=== PATIENT | male | born 1945 | race Caucasian/White ===

== ENCOUNTER 2017-07-08 23:17 | Observation (INO) | payer OTHER ==
[2017-07-08] MEDS ORDERED: ONDANSETRON 4 MG/2 ML VIAL ONE (23:29)
[2017-07-08 23:44] VITALS: BMI 37.6
[2017-07-09 00:38] LABS: BASO # 0.1 # (0.1-1); BASO % 0.5 % (0-2.0); EOS # 0.2 # (0-4.5); EOS % 1.4 % (0-4.5); MCH 31.8 pg (25.7-33.7); MCHC 33.4 g/dl (32.0-35.9); MEAN CELL VOLUME 95.3 fl (80-96); MEAN PLT VOLUME 8.3 fl (7.5-11.1); MONO # 1.1 # (3.8-10.2); NEUT # 8.2 # (42.8-82.8); NEUT % 65.5 % (42.8-82.8); PLATELET COUNT 252 K/MM3 (134-434); RDW 13.6 % (11.9-15.9); WHITE BLOOD COUNT 12.5 K/mm3 (4.0-10.0)
--- NOTE | 2017-07-09 00:48 | PDOC ---
History of Present Illness <Mele Max - Last Filed: 07/09/17 04:19> - History of Present Illness Initial Comments: 07/09/17 02:17 The patient is a 72 year old male, with a significant past medical history of HTN, hyperlipidemia, CAD s/p stent () on aspirin, who presents to the emergency department with, "impaired equilibrium" and multiple episodes of NBNB emesis. The patient reports waking up at 4am feeling nauseous, cold sweats, a posterior headache. When he stood up, he states his equilibrium felt off and he was unable to stand. He took two advil, the headache resolved and he felt better. He reports his symptoms arose again two hours ago and when he had episodes of emesis and significant cold sweats. While in the ED the patient had a repeat episode of large volume NBNB emesis. He reports when he sits he falls to the side. He reports that he cannot stand on his own. He reports never having similar symptoms previously. He reports when he had his SC in he did not have CP, more so felt very weak but did not have vomiting. He denies any recent fevers. He denies any recent diarrhea or constipation. He denies any recent abd pain, chest pain or shortness of breath. He denies any recent dysuria, frequency, urgency or hematuria. Allergies: NKA Past surgical history: 2 stents Social History: Nonsmoker. Denies EtOH use and recreational drug use. Primary Care Physician: Dr. Cruz <Lia Suárez - Last Filed: 07/10/17 04:27> - General Chief Complaint: Nausea/Vomiting Stated Complaint: NAUSEA VOMITING Time Seen by Provider: 07/08/17 23:28 NIH Stroke Scale - Last Known Well Date/Time & Onset Date Last Known Well: 07/08/17 Time Last Known Well: 04:00 - Initial Evaluation Level of consciousness: Alert Ask patient the month and their age: Answers both correctly Ask patient to open & close eyes; make fist and let go: Obeys both correctly Best gaze (horizontal eye movement): Normal Visual field testing: No visual field loss Facial paresis (Show teeth/raise eyebrows/close eyes tight): Normal symmetrical movement Motor Function: Left Arm: Normal Motor Function: Right Arm: Normal (extends arm 90 (or 45) degrees for 10 seconds without drift Motor Function: Left Leg: Normal (extends leg 30 degrees for 5 seconds without drift) Motor Function: Right Leg: Normal (extends leg 30 degrees for 5 seconds without drift) Limb Ataxia: Present in two limbs Sensory(Use pinprick test arms,legs,trunk,face/side to side): Normal Best language (Describe picture, name items, read sentences): No Aphasia Dysarthria (read several words): Normal articulation Extinction and Inattention: No abnormality - Total Score NIH Stroke Scale Score: 2 <Mele Max - Last Filed: 07/09/17 04:19> Past History <Ou,Mele - Last Filed: 07/09/17 04:19> - Past Medical History Cancer: Yes (prostate cancer,testicular cancer) Cardiac Disorders: Yes (mi) CVA: No CHF: No (2 stents SC 2001) Dementia: No Diabetes: No GI Disorders: No Disorders: No HTN: Yes Hypercholesterolemia: Yes Liver Disease: No Seizures: No Thyroid Disease: No - Surgical History Abdominal Surgery: Yes (UMBILICAL HERNIA REPAIR) Appendectomy: Yes Cardiac Surgery: Yes (2 CARDIAC STENTS 2001) Cholecystectomy: No Lung Surgery: No Neurologic Surgery: No Orthopedic Surgery: No - Suicide/Smoking/Psychosocial Hx Smoking History: Never smoked Have you smoked in the past 12 months: No If you are a former smoker, when did you quit?: 1996 Information on smoking cessation initiated: No Hx Alcohol Use: Yes Drug/Substance Use Hx: No Substance Use Type: Alcohol <Lia Suárez - Last Filed: 07/10/17 04:27> - Past Medical History Allergies/Adverse Reactions: Allergies Allergy/AdvReac Type Severity Reaction Status Date / Time No Known Drug Allergies Allergy Verified 07/08/17 23:46 Home Medications: Ambulatory Orders Enalapril Maleate [Vasotec -] 20 mg PO BID 02/19/15 Metoprolol Succinate [Toprol Xl -] 50 mg PO HS 02/19/15 Multivit-Mins/Iron/Folic/Lycop [Centrum Ultra Men's Tablet] 1 each PO DAILY 01/27 Simvastatin 40 mg PO HS 02/19/15 Aspirin [ASA -] 81 mg PO DAILY #0 01/31/16 Review of Systems - Review of Systems Comments:: 07/09/17 02:17 GENERAL/CONSTITUTIONAL: +Diaphoresis. No fever or chills. No weakness. HEAD, EYES, EARS, NOSE AND THROAT: No change in vision. No ear pain or discharge. No sore throat. GASTROINTESTINAL:+Nausea. +Vomiting. No diarrhea or constipation. GENITOURINARY: No dysuria, frequency, or change in urination. CARDIOVASCULAR: No chest pain or shortness of breath. RESPIRATORY: No cough, wheezing, or hemoptysis. MUSCULOSKELETAL: No joint or muscle swelling or pain. No neck or back pain. SKIN: No rash NEUROLOGIC: +Headache. +equilibrium off balance. No loss of consciousness, or change in strength/sensation. ENDOCRINE: No increased thirst. No abnormal weight change. HEMATOLOGIC/LYMPHATIC: No anemia, easy bleeding, or history of blood clots. ALLERGIC/IMMUNOLOGIC: No hives or skin allergy. <Yara Suáreza - Last Filed: 07/10/17 04:27> *Physical Exam - Vital Signs Last Vital Signs Temp Pulse Resp BP Pulse Ox 97.7 F 75 22 135/78 95 07/08/17 23:39 07/08/17 23:39 07/08/17 23:39 07/08/17 23:39 07/08/17 23:39 <Ou,Mele - Last Filed: 07/09/17 04:19> - Vital Signs Last Vital Signs Temp Pulse Resp BP Pulse Ox 97.7 F 75 22 135/78 95 07/08/17 23:39 07/08/17 23:39 07/08/17 23:39 07/08/17 23:39 07/08/17 23:39 - Physical Exam Comments: 07/09/17 02:18 GENERAL: Awake, alert, and fully oriented, in no acute distress HEAD: No signs of trauma EYES: PERRLA, EOMI, sclera anicteric, conjunctiva clear ENT: Auricles normal inspection, hearing grossly normal, nares patent, oropharynx clear without exudates. Moist mucosa NECK: Normal ROM, supple, no lymphadenopathy, JVD, or masses LUNGS: Breath sounds equal, clear to auscultation bilaterally. No wheezes, and no crackles HEART: Regular rate and rhythm, normal S1 and S2, no murmurs, rubs or gallops ABDOMEN: Soft, nontender, normoactive bowel sounds. No guarding, no rebound. No masses EXTREMITIES: Normal range of motion, no edema. No clubbing or cyanosis. No cords, erythema, or tenderness NEUROLOGICAL: Normal speech, cranial nerves intact, negative pronator drift, 5/ 5 strength in all 4 extremities, normal sensation to light touch in all 4 extremities, +truncal ataxia SKIN: Warm, Dry, normal turgor, no rashes or lesions noted. <Lia Suárez - Last Filed: 07/10/17 04:27> Heart Score/ECG Review #1 07/09/17 00:44 Twelve-lead EKG was performed and reviewed by me. Normal sinus rhythm, rate 83. Normal axis, no ST elevations <Lia Suárez - Last Filed: 07/10/17 04:27> ED Treatment Course - LABORATORY CBC & Chemistry Diagram: 07/09/17 00:21 07/09/17 00:21 - ADDITIONAL ORDERS Additional order review: Laboratory Results 07/09/17 07/09/17 07/09/17 00:21 00:21 00:21 PT with INR 11.20 INR 0.99 PTT (Actin FS) 25.9 L Sodium 141 Potassium 3.8 Chloride 105 Carbon Dioxide 25 Anion Gap 11 BUN 25 H Creatinine 1.0 Creat Clearance w eGFR > 60 Random Glucose 135 H Calcium 8.8 Magnesium 2.1 Total Bilirubin 0.3 AST 34 ALT 35 Alkaline Phosphatase 87 Troponin I < 0.02 B-Natriuretic Peptide 97.05 Total Protein 7.0 Albumin 3.5 Lipase 363 07/09/17 00:21 RBC 4.74 MCV 95.3 MCHC 33.4 RDW 13.6 MPV 8.3 Neutrophils % 65.5 Lymphocytes % 23.6 Monocytes % 9.0 Eosinophils % 1.4 Basophils % 0.5 - Medications Given in the ED: ED Medications Discontinued Medications Generic Name Dose Route Start Last Admin Trade Name Freq PRN Reason Stop Dose Admin Meclizine HCl 25 mg 07/09/17 03:20 07/09/17 03:29 Antivert - PO 07/09/17 03:21 25 mg ONCE ONE Administration <Mele Max - Last Filed: 07/09/17 04:19> - LABORATORY CBC & Chemistry Diagram: 07/09/17 00:21 07/09/17 00:21 - RADIOLOGY Radiology Studies Ordered: Category Date Time Status HEAD CT WITHOUT CONTRAST [CT] Stat CT Scan 07/09/17 00:42 Ordered CHEST X-RAY PORTABLE* [RAD] Stat Radiology 07/09/17 00:42 Ordered <Lia Suárez - Last Filed: 07/10/17 04:27> Medical Decision Making - Medical Decision Making 07/09/17 00:48 72-year-old male history of CAD, hypertension, hyperlipidemia presents with 1 day of intermittent ataxia associated with weakness and emesis. Vitals are unremarkable. Exam w truncal ataxia c/f cerebellar stroke. Differential includes but is not limited to vertigo versus CVA versus ACS. We'll obtain labs , CT head, chest x-ray and reassess. 07/09/17 03:28 labs with mild leukocytosis to 12.5. Otherwise labs wnl. CTH negative for acute pathology. On re-eval, when pt asked to sit up, he has truncal ataxia. Denies room spinning dizziness. Presentation is concerning for acute stroke, less likely peripheral vertigo as pt does not have room spinning. Due to risk factors as well, MRI has been ordered, will admit for neuro c/s in AM and stroke w/u. Dr. Messina's service was paged, Dr. Wong is covering. Awaiting call back. <Lia Suárez - Last Filed: 07/10/17 04:27> *DC/Admit/Observation/Transfer <Mele Max - Last Filed: 07/09/17 04:19> - Discharge Dispostion Admit: Yes - Attestations Physician Attestion: 07/09/17 03:34 I, Dr. Lia Suárez MD, attest that this document has been prepared under my direction and personally reviewed by me in its entirety. I further attest, that it accurately reflects all work, treatment, procedures and medical decision -making performed by me. <Lia Suárez - Last Filed: 07/10/17 04:27> Diagnosis at time of Disposition: Truncal ataxia - Discharge Dispostion Condition at time of disposition: Stable
[2017-07-09 00:51] LABS: INR 0.99 (0.82-1.09); PROTHROMBIN TIME (PATIENT) 11.2 SEC (9.98-11.88)
[2017-07-09 00:54] LABS: ACTIVATED PTT 25.9 SECONDS (26.9-34.4)
[2017-07-09 01:13] LABS: ALBUMIN 3.5 g/dl (3.4-5.0); ANION GAP 11 (8-16); BILIRUBIN,TOTAL 0.3 mg/dL (0.2-1.0); CALCIUM 8.8 mg/dL (8.5-10.1); CO2 25 mmol/L (21-32); GLUCOSE,RANDOM 135 mg/dL (74-106); MAGNESIUM 2.1 mg/dL (1.8-2.4); SGOT/AST 34 U/L (15-37); SGPT/ALT 35 U/L (12-78)
[2017-07-09 01:16] LABS: ALK PHOS 87 U/L (45-117); TROPONIN I < 0.02 ng/ml (0.00-0.05)
[2017-07-09] MEDS ORDERED: MECLIZINE HCL 25 MG TABLET (FP) PO ONE (03:20)
[2017-07-09] MEDS ORDERED: MECLIZINE HCL 25 MG TABLET (FP) ONE ×2 (03:34→10:25)
--- NOTE | 2017-07-09 04:17 | PDOC ---
*Physical Exam - Vital Signs Last Vital Signs Temp Pulse Resp BP Pulse Ox 97.7 F 75 22 135/78 95 07/08/17 23:39 07/08/17 23:39 07/08/17 23:39 07/08/17 23:39 07/08/17 23:39 ED Treatment Course - LABORATORY CBC & Chemistry Diagram: 07/09/17 00:21 07/09/17 00:21 - ADDITIONAL ORDERS Additional order review: Laboratory Results 07/09/17 07/09/17 07/09/17 00:21 00:21 00:21 PT with INR 11.20 INR 0.99 PTT (Actin FS) 25.9 L Sodium 141 Potassium 3.8 Chloride 105 Carbon Dioxide 25 Anion Gap 11 BUN 25 H Creatinine 1.0 Creat Clearance w eGFR > 60 Random Glucose 135 H Calcium 8.8 Magnesium 2.1 Total Bilirubin 0.3 AST 34 ALT 35 Alkaline Phosphatase 87 Troponin I < 0.02 B-Natriuretic Peptide 97.05 Total Protein 7.0 Albumin 3.5 Lipase 363 07/09/17 00:21 RBC 4.74 MCV 95.3 MCHC 33.4 RDW 13.6 MPV 8.3 Neutrophils % 65.5 Lymphocytes % 23.6 Monocytes % 9.0 Eosinophils % 1.4 Basophils % 0.5 - Medications Given in the ED: ED Medications Discontinued Medications Generic Name Dose Route Start Last Admin Trade Name Freq PRN Reason Stop Dose Admin Meclizine HCl 25 mg 07/09/17 03:20 07/09/17 03:29 Antivert - PO 07/09/17 03:21 25 mg ONCE ONE Administration Medical Decision Making - Medical Decision Making 07/09/17 04:17 Care assumed at 3AM. Pt admitted to Dr. Rivera under tele obs for stroke w/u. *DC/Admit/Observation/Transfer Diagnosis at time of Disposition: Truncal ataxia - Discharge Dispostion Condition at time of disposition: Stable Admit: Yes - Referrals Referrals: Krishna Crum MD [Primary Care Provider] - - Patient Instructions - Post Discharge Activity - Attestations Physician Attestion: 07/09/17 04:21 I, Dr. Mele Max MD, attest that this document has been prepared under my direction and personally reviewed by me in its entirety. I further attest, that it accurately reflects all work, treatment, procedures and medical decision -making performed by me.
[2017-07-09] MEDS ORDERED: MECLIZINE HCL 25 MG TABLET (FP) PO PRN (04:50)
[2017-07-09] MEDS ORDERED: ONDANSETRON 4 MG/2 ML VIAL IVPUSH PRN (04:52)
[2017-07-09] MEDS ORDERED: SODIUM CHLORIDE 1,000 ML IV SCH (05:00)
--- NOTE | 2017-07-09 08:19 | HP ---
Admitting History and Physical - Primary Care Physician PCP: Krishna Crum - Admission Chief Complaint: Dizziness, Unsteady Gait and Balance History of Present Illness: This is a 72 y/o man with a significant past medical history of HTN, HLD, CAD ( stent x2), CHF, Prostate Ca, Testicular Ca. Who presents to the Ed with dizziness, unsteady gait, and a posterior headache x 1 day. Patient reports the symptoms started at 4am the day before. He reports that the symptoms lasted a few minutes then resolved. This time he states" I couldn't stand up, or hold my balance." He reports having one episode of non-bilious emesis and becoming cold and sweating profusely. The patient reports that the dizziness worsens on movement. The patient's reports that her drinks alcohol daily- Blueberry Nicole, Beer and Vodka. The patient admits to drinking 1/3 a bottle of wine tonight at a social setting. The patient denies fever, cough, SOB, CP, palpitations, AP, diarrhea, constipaiton, dysuria. History Source: Patient, Family Member Limitations to Obtaining History: No Limitations - Past Medical History Cardiovascular: Yes: CAD, CHF, HTN, Hyperlipdemia Renal/: Yes: Cancer (prostate, testicular) - Past Surgical History Past Surgical History: Yes: Stent (x2) - Smoking History Smoking history: Never smoked Have you smoked in the past 12 months: No If you are a former smoker, when did you quit?: 1996 - Alcohol/Substance Use Hx Alcohol Use: Yes (daily- Nicole, Beer, Vodka) Number of Drinks Daily: 4 History of Substance Use: reports: None - Social History Usual Living Arrangement: Yes: With Spouse ADL: Independent History of Recent Travel: No Home Medications - Allergies Allergies/Adverse Reactions: Allergies Allergy/AdvReac Type Severity Reaction Status Date / Time No Known Drug Allergies Allergy Verified 07/08/17 23:46 - Home Medications Home Medications: Ambulatory Orders Enalapril Maleate [Vasotec -] 20 mg PO BID 02/19/15 Metoprolol Succinate [Toprol Xl -] 50 mg PO HS 02/19/15 Multivit-Mins/Iron/Folic/Lycop [Centrum Ultra Men's Tablet] 1 each PO DAILY 01/27 Simvastatin 40 mg PO HS 02/19/15 Aspirin [ASA -] 81 mg PO DAILY #0 01/31/16 Family Disease History - Family Disease History Family Disease History: Heart Disease: Mother, Brother, Other: Father (brain aneurysm- ) Review of Systems - Review of Systems Constitutional: reports: Diaphoresis Eyes: reports: No Symptoms HENT: reports: No Symptoms Neck: reports: No Symptoms Cardiovascular: reports: No Symptoms Respiratory: reports: No Symptoms Gastrointestinal: reports: Nausea, Vomiting Genitourinary: reports: No Symptoms Breasts: reports: No Symptoms Reported Musculoskeletal: reports: No Symptoms Integumentary: reports: No Symptoms Neurological: reports: Dizziness, Headache, Incoordination, Unsteady Gait Endocrine: reports: No Symptoms Hematology/Lymphatic: reports: No Symptoms Psychiatric: reports: No Symptoms Physical Examination Vital Signs: Vital Signs Temperature 97.7 F 07/08/17 23:39 Pulse Rate 75 07/08/17 23:39 Respiratory Rate 22 07/08/17 23:39 Blood Pressure 135/78 07/08/17 23:39 O2 Sat by Pulse Oximetry (%) 95 07/08/17 23:39 Constitutional: Yes: Well Nourished, No Distress, Obese Eyes: Yes: WNL, Conjunctiva Clear, EOM Intact, PERRL HENT: Yes: WNL, Atraumatic, Normocephalic Neck: Yes: WNL, Supple, Trachea Midline Cardiovascular: Yes: WNL, Regular Rate and Rhythm, S1 Respiratory: Yes: WNL, Regular, CTA Bilaterally Gastrointestinal: Yes: Normal Bowel Sounds, Soft, Abdomen, Obese ...Rectal Exam: Yes: Deferred Renal/: Yes: WNL Breast(s): Yes: WNL Musculoskeletal: Yes: WNL Extremities: Yes: WNL Edema: Yes Edema: LLE: 1+, RLE: 1+ Peripheral Pulses WNL: Yes Integumentary: Yes: WNL Neurological: Yes: Alert, Oriented, Ataxia, Unsteady Gait ...Motor Strength: WNL Psychiatric: Yes: WNL, Alert, Oriented Labs: CBC, BMP 07/09/17 00:21 07/09/17 00:21 Imaging - Results Chest X-ray: Image Reviewed Cat Scan: Image Reviewed EKG: Image Reviewed Problem List - Problems (1) HTN (hypertension) Code(s): I10 - ESSENTIAL (PRIMARY) HYPERTENSION (2) CAD (coronary artery disease) Code(s): I25.10 - ATHSCL HEART DISEASE OF [place] CORONARY ARTERY W/O ANG PCTRS (3) DVT prophylaxis Code(s): KFD6770 - (4) Truncal ataxia Code(s): R27.8 - OTHER LACK OF COORDINATION Assessment/Plan This is a 72 y/o man with a PMHx of CAD, HTN, CHF, HLD, Prostate Ca, Testicular Ca. Placed in Tele Observation Truncal Ataxia. Plan: 1. Neuro: Disequilibrium - r/o Truncal Ataxia vs CVA vs Tumor - Likely secondary to Chronic Alcohol Abuse - NIHSS 1 - Cardiac monitoring - Aopreciate Neurology Consult - Head CT- neg ICH - MRI Head in am-pending - ETOH level- pending - Monitor CBC, BMP - Mg, Phos this am - IVF - Antivert prn - Hold Asa, until results of MRI- concerned for ICH - Monitor for DTs, consider Librium - Neuro checks - Fall precautions - Seizure precautions 2. Cardiology: HTN HLD CAD s/p stent CHF - Controlled - Continue home meds - EKG reviewed - Monitor vitals 3. FEN - NS@42cc/hr - replete lytes prn - NPO 4. DVT prophylaxis - SCDs - Hold ACs concern for ICH Code Status: Full Code Dispo: Tele Observation Visit type - Emergency Visit Emergency Visit: Yes ED Registration Date: 07/09/17 Care time: The patient presented to the Emergency Department on the above date and was hospitalized for further evaluation of their emergent condition. - New Patient This patient is new to me today: Yes Date on this admission: 07/09/17 - Critical Care Critical Care patient: No
[2017-07-09 09:06] LABS: MAGNESIUM 2.1 mg/dL (1.8-2.4); PHOSPHOROUS 2.9 mg/dL (2.5-4.9)
[2017-07-09 09:08] LABS: TROPONIN I < 0.02 ng/ml (0.00-0.05)
[2017-07-09] MEDS ORDERED: ENALAPRIL MALEATE 10 MG TABLET (FP) PO SCH (10:00)
[2017-07-09] MEDS ORDERED: MULTIVITAMINS THER W-MINERALS COMBO TABLET (FP) PO SCH (10:00)
[2017-07-09] MEDS ORDERED: ENALAPRIL MALEATE 5 MG TABLET (FP) ONE (10:12)
[2017-07-09] MEDS ORDERED: ACETAMINOPHEN 325 MG TABLET (FP) ONE (10:13)
--- NOTE | 2017-07-09 12:46 | CON.NEURO ---
Consult - Past Medical History Cardio/Vascular: Yes: CAD, CHF, HTN, Hyperlipdemia Renal/: Yes: Cancer (prostate, testicular) - Past Surgical History Past Surgical History: Yes: Stent (x2) - Alcohol/Substance Use Hx Alcohol Use: Yes (daily- Nicole, Beer, Vodka) Number of Drinks Daily: 4 History of Substance Use: reports: None - Smoking History Smoking history: Never smoked Have you smoked in the past 12 months: No If you are a former smoker, when did you quit?: 1996 - Social History ADL: Independent History of Recent Travel: No Home Medications - Allergies Allergies/Adverse Reactions: Allergies Allergy/AdvReac Type Severity Reaction Status Date / Time No Known Drug Allergies Allergy Verified 07/08/17 23:46 - Home Medications Home Medications: Ambulatory Orders Enalapril Maleate [Vasotec -] 20 mg PO BID 02/19/15 Metoprolol Succinate [Toprol Xl -] 50 mg PO HS 02/19/15 Multivit-Mins/Iron/Folic/Lycop [Centrum Ultra Men's Tablet] 1 each PO DAILY 01/27 Simvastatin 40 mg PO HS 02/19/15 Aspirin [ASA -] 81 mg PO DAILY #0 01/31/16 Family Disease History - Family Disease History Family Disease History: Heart Disease: Mother, Brother, Other: Father (brain aneurysm- ) Physical Exam-Neuro Vital Signs: Vital Signs Temperature 97.7 F 07/08/17 23:39 Pulse Rate 75 07/08/17 23:39 Respiratory Rate 22 07/08/17 23:39 Blood Pressure 135/78 07/08/17 23:39 O2 Sat by Pulse Oximetry (%) 95 07/08/17 23:39 Labs: CBC, BMP 07/09/17 00:21 07/09/17 00:21 INR, PTT INR 0.99 (0.82-1.09) 07/09/17 00:21 Assessment/Plan cc Feeling of dysbalance for one day HPI 72 year old man history of HTN, HLD,CAD , CHF , Prostate ca, testicular ca. He woke up with feeling dizzy, he describes as feeling of dysbalance since yesterday. Even in bed moving his head around makes him feel dizzy. He is not able to wlak and he feels that he is is drunk. 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 SH,ROS,FH reviewed in chart NKDA - Home Medications Enalapril Maleate [Vasotec -] 20 mg PO BID 02/19/15 Metoprolol Succinate [Toprol Xl -] 50 mg PO HS 02/19/15 Multivit-Mins/Iron/Folic/Lycop [Centrum Ultra Men's Tablet] 1 each PO DAILY 01/27 Simvastatin 40 mg PO HS 02/19/15 Aspirin [ASA -] 81 mg PO DAILY #0 01/31/16 Neurological Examination Alert oriented x 3 speech is normal, able to follow command EOMI, no face asymmetry, pupils is reactive strength is normal in upper and lower extremity there is mild dysmetria bilaterally mri of brain review Assessment- 72 year old male history of CHF, HTN , HLD , CAD 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 suspect Basilar artery thrombosis Plan-- aspirin once a day lipitor 80 mg once a day cta to rule out basilar artery thrombosis He would need icu care and Neurosurgical Evaluation Spoke to Dr Crum , Neurocheck Thanks for consult Baljinder Munguia MD
[2017-07-09 13:45] VITALS: BP 138/77; PULSE 84; TEMP 98.6
--- NOTE | 2017-07-09 15:25 | EKG ---
Test Reason : Blood Pressure : / mmHG Vent. Rate : 083 BPM Atrial Rate : 083 BPM P-R Int : 226 ms QRS Dur : 094 ms QT Int : 376 ms P-R-T Axes : 041 014 017 degrees QTc Int : 441 ms POOR DATA QUALITY, INTERPRETATION MAY BE ADVERSELY AFFECTED SINUS RHYTHM WITH 1ST DEGREE A-V BLOCK OTHERWISE NORMAL ECG WHEN COMPARED WITH ECG OF 14-DEC-2006 07:16, MD INTERVAL HAS INCREASED NONSPECIFIC T WAVE ABNORMALITY NOW EVIDENT IN ANTERIOR LEADS Confirmed by BRIGITTE MARLOW MD ([id number]) on 07/09/2017 3:25:01 PM Referred By: Confirmed By:BRIGITTE MARLOW MD
[2017-07-09] MEDS ORDERED: ATORVASTATIN CA 20 MG TABLET (FP) PO SCH (22:00)
[2017-07-09] MEDS ORDERED: METOPROLOL SUCCINATE 50 MG TAB.SR.24H (FP) PO SCH (22:00)
== END 2017-07-09 13:30 | disposition short-term general hospital (02) ==
LOC: SUPCPDRO 23:17 → JER 23:17 → JERBED 07-09 04:22
PROVIDERS: ADMIT Internal Medicine; ATTEND Family Medicine
DX: R27.0 Ataxia, unspecified (principal); I10 Essential (primary) hypertension; E78.5 Hyperlipidemia, unspecified; I25.10 Atherosclerotic heart disease of native coronary artery without angina pectoris; Z95.5 Presence of coronary angioplasty implant and graft; Z79.82 Long term (current) use of aspirin; Z85.46 Personal history of malignant neoplasm of prostate; Z85.47 Personal history of malignant neoplasm of testis; I25.2 Old myocardial infarction
CPT/HCPCS: 36415; 70450-TC; 70551-TC; 71010-TC; 80053; 80307; 83036; 83690; 83735; 83880; 84100; 84443; 84484; 85025; 85610; 85730; 93005; 93010; 99284-25; G0378

== ENCOUNTER 2018-01-08 10:04 | Day surgery (SDC) | payer OTHER ==
[2018-01-07 15:46] VITALS: BMI 35.6
[2018-01-08 10:29] LABS: HEMATOCRIT 41.5 % (35.4-49); MCH 32.1 pg (25.7-33.7); MCHC 33.6 g/dl (32.0-35.9); MEAN CELL VOLUME 95.6 fl (80-96); MEAN PLT VOLUME 7.8 fl (7.5-11.1); PLATELET COUNT 283 K/MM3 (134-434); RBC 4.35 M/mm3 (4.00-5.60); RDW 14.2 % (11.9-15.9); WHITE BLOOD COUNT 12.8 K/mm3 (4.0-10.0)
[2018-01-08 10:45] LABS: INR 1.1 (0.82-1.09); PROTHROMBIN TIME (PATIENT) 12.4 SEC (9.7-13.0)
[2018-01-08 10:49] LABS: ACTIVATED PTT 27.7 SECONDS (25.2-36.5)
[2018-01-08] MEDS ORDERED: LIDOCAINE VISCOUS 2% ORAL/TOP 20 ML UNIT-DOSE CUP ONE (11:10)
[2018-01-08 11:14] LABS: ANION GAP 8 (8-16); BLOOD UREA NITROGEN 19 mg/dL (7-18); CALCIUM 8.4 mg/dL (8.5-10.1); CHLORIDE 105 mmol/L (98-107); CO2 27 mmol/L (21-32); CREATININE 0.8 mg/dL (0.7-1.3); GLUCOSE,RANDOM 90 mg/dL (74-106); POTASSIUM 4.2 mmol/L (3.5-5.1); SODIUM 140 mmol/L (136-145)
[2018-01-08 12:17] VITALS: TEMP 98.3
[2018-01-08 13:05] VITALS: BP 119/68; PULSE 61
== END 2018-01-08 13:15 | disposition home or self-care (01) ==
LOC: JASU-ENDO 10:04
PROVIDERS: ATTEND Internal Medicine Cardiovascular Disease
PROC: B246ZZ4 Ultrasonography of Right and Left Heart, Transesophageal (ICD-10-PCS; principal; 2018-01-08 12:00)
DX: Z86.73 Personal history of transient ischemic attack (TIA), and cerebral infarction without residual deficits (principal); I34.0 Nonrheumatic mitral (valve) insufficiency
CPT/HCPCS: 36415; 80048; 85027; 85610; 85730; 93312; 93325